=== PATIENT | male | born 1980 | race Caucasian/White ===

== ENCOUNTER → 2016-05-26 | Outpatient (CLI) | payer OTHER ==
[~2016-05-26] MED LIST: ATV/1 PO; CETI10TA84 PO; OMEP-199 PO
== END | disposition home or self-care (01) ==
LOC: C.RDSM 16:36
PROVIDERS: ATTEND Physical Medicine & Rehabilitation Sports Medicine
DX: S69.81XD Other specified injuries of right wrist, hand and finger(s), subsequent encounter (principal); X58.XXXD Exposure to other specified factors, subsequent encounter

== ENCOUNTER → 2016-09-15 | Outpatient (CLI) | payer OTHER | END | disposition home or self-care (01) | LOC: C.RDSM 15:28 | PROVIDERS: ATTEND Physical Medicine & Rehabilitation Sports Medicine | DX: M25.531 Pain in right wrist (principal) ==

== ENCOUNTER 2016-10-10 13:37 | Emergency (ER) | payer OTHER ==
[~2016-10-10] VITALS: Ht 185.4 cm; Wt 94.3 kg
[~2016-10-10 13:37] MED LIST changes: -CETI10TA84 PO
[2016-10-10 13:46] VITALS: TEMP 36.6; Ht 185.4 cm; Wt 94.3 kg
[2016-10-10] MEDS ORDERED: SODIUM CHLORIDE 0.9% 1000ML 1,000 ML IV STA ×2 (14:02)
[2016-10-10] MEDS ORDERED: OPTIRAY 320 IV PRN (14:15)
[2016-10-10 14:33] LABS: BASO % 0.3 %; BASO ABS # 0.02 K/uL (0-0.2); COMPLETE YES; EOS % 1.4 %; HEMATOCRIT 46.1 % (42-52); IG% 0.2 %; LYMPH % 25.5 %; MEAN CORPUSCULAR HEMOGLOBIN 31.1 pg (25-34); MEAN CORPUSCULAR HGB CONC 34.5 g/dl (32-36); MEAN PLATELET VOLUME 10.9 fL (7.4-10.4); MONO % 6.8 %; NEUT % 65.8 %; PLATELET COUNT 222 K/uL (130-400); RED BLOOD COUNT 5.12 M/uL (4.7-6.1); WHITE BLOOD COUNT 6.28 K/uL (4.8-10.8)
[2016-10-10 14:50] LABS: CALCIUM 9.2 mg/dl (8.5-10.1); CREATININE 1.1 mg/dl (0.60-1.40); POTASSIUM 3.8 mmol/L (3.5-5.1)
[2016-10-10] MEDS ORDERED: CETI10TA84 PO (15:06)
--- NOTE | 2016-10-10 15:11 | DIAGNOSTIC IMAGING REPORT ---
ABD/PELVIS WITHOUT FOR STONE HISTORY:36 yearsMaleRLQ PAIN COMPARISON: None available. TECHNIQUE: Multiple axial CT images of the abdomen and pelvis were obtained without the use of IV contrast. FINDINGS: Lung bases are clear. There is no gross pneumoperitoneum. Inferior cardiac chambers are unremarkable with slightly decreased attenuation of the cardiac blood pool which could reflect underlying anemia. Evaluation of the solid abdominal organs is limited without IV contrast. The liver, spleen, gallbladder, pancreas and adrenal glands are within normal limits. The kidneys are unremarkable without calculus identified. No obstructive uropathy. Bladder is within normal limits. The abdominal aorta is normal in course and caliber. No bulky adenopathy is identified. There is no bowel obstruction. The appendix is air-filled and nondilated within the abdominal right lower quadrant. No significant inflammatory changes are seen surrounding the appendix. There are however moderate inflammatory changes surrounding the cecum anterior to the appendix. (For example likely seen on image 115 of the axial series). Soft tissues are unremarkable. Bones are intact. IMPRESSION: 1. Moderate inflammatory changes about the cecum are present with normal appearance of the adjacent appendix. Differential considerations may include infectious colitis or inflammatory bowel disease. Because of the close proximity of the appendix, if symptoms persist a follow-up exam may be considered. 2. No renal calculi. The above report was generated using voice recognition software. It may contain grammatical, syntax or spelling errors. Electronically signed by: James Bazzi 10/10/2016 3:10 PM Dictated Date/Time: 10/10/2016 3:01 PM
--- NOTE | 2016-10-10 17:08 | EMERGENCY ROOM VISIT NOTE ---
History First contact with patient: 13:51 Chief Complaint: ABDOMINAL PAIN Stated Complaint: LOWER RIGHT ABDOMINAL PAIN Nursing Triage Summary: right lower quadrant since 430 this am. pain has been getting worse. no nausea or vomiting History of Present Illness Patient is a generally healthy 36-year-old white male who presents emergency department for evaluation of right lower quadrant abdominal pain that started this morning. Patient states that he awoke from sleep around 04:30 with a dull , achy pain in the right lower quadrant. He states the pain did not radiate. He got up and urinated at that time without difficulty. He went back to bed and woke up 2 hours later, again with the same pain. The pain has progressively worsened throughout the day. He presently rates it a 6/10. It is located in the right lower quadrant. He denies any radiation of the pain to his back or flank or to the umbilical or suprapubic region. There is been no associated nausea or vomiting. Last bowel movement this morning was normal, without blood or melena. He had a normal breakfast at 07:30, otherwise hasn't had nothing else to eat and has been drinking water since. He feels like he is urinating more frequently, but attributes this to drinking more water. He states his urine has been clear. He does note some increased pressure with voiding. He has not had any fevers. He was seen by his primary care provider and directed to the emergency department for evaluation of a possible appendicitis. He does have a family history of kidney stones. He has a history of anxiety and GERD, but is not presently taking any medications for this. Review of Systems Review of systems as per HPI. All other systems reviewed were negative. 10 systems reviewed. Past Medical/Surgical History Medical Problems: (1) Anxiety Disorder, Unspecified (2) Gastro-Esophageal Reflux Disease Without Esophagitis Surgical Problems: (1) S/P wrist surgery Electronic medical records are reviewed and summarized as above/below. See Problem List. Social History Smoking Status: Never Smoker Alcohol Use: occasionally Marital Status: single Housing Status: lives with roommate Occupation Status: employed Current/Historical Medications Scheduled Cetirizine (Zyrtec), 10 MG PO UD Lorazepam (Ativan), 1 MG PO QAM Omeprazole Magnesium (Omeprazole Magnesium), 1 CAP PO QAM Allergies Coded Allergies: POLLEN (Verified Allergy, Unknown, SEASONAL ALLERGIES, 10/10/16) Sulfa Antibiotics (Verified Allergy, Unknown, RASH, 10/10/16) Physical Exam Vital Signs Date Time Temp Pulse Resp B/P (MAP) Pulse Ox O2 Delivery O2 Flow Rate FiO2 10/10/16 17:31 67 20 123/83 98 Room Air 10/10/16 16:05 72 20 125/75 97 Room Air 10/10/16 15:00 72 20 120/68 98 Room Air 10/10/16 13:46 36.6 66 18 124/82 97 Room Air Physical Exam CONSTITUTIONAL: Patient is a pleasant, well-appearing 36-year-old white male who is awake and alert and in no acute distress. EYES: Pupils equal, round, reactive to light and accommodation. EOMs intact without nystagmus. Sclera are anicteric. ENT: Tympanic membranes intact, with normal landmarks. External canals are clear. Oral and nasopharynx are clear. Mucous membranes are moist, no lesions , tongue and gums appear normal. CARDIOVASCULAR: Regular rate and rhythm, with normal S1 and S2, no murmur or gallop or rub is heard. No carotid bruits auscultated. No JVD. Peripheral pulses easy to palpable. RESPIRATORY: Breath sounds equal and clear to auscultation without wheezes, rales, or rhonchi heard. Full and equal chest expansion without accessory muscle use or retractions. GI: Bowel sounds are present. Abdomen is soft, nondistended, tender to palpation in the right lower quadrant with voluntary guarding. Positive rebound and referred rebound tenderness, positive Rovsing sign. MUSCULOSKELETAL: Full range of motion of extremities x 4 with good strength. No cyanosis, edema, joint tenderness or swelling. No deformity. INTEGUMENTARY: No lesions or rash, normal skin turgor. NEUROLOGICAL: Alert, oriented, and cooperative. Cranial nerves, sensation and strength grossly intact. Pupils round, equal, and react to light, EOMs are full. LYMPH: No lymphadenopathy. Medical Decision & Procedures ER Provider Diagnostic Interpretation: ABD/PELVIS WITHOUT FOR STONE HISTORY:36 yearsMaleRLQ PAIN COMPARISON: None available. TECHNIQUE: Multiple axial CT images of the abdomen and pelvis were obtained without the use of IV contrast. FINDINGS: Lung bases are clear. There is no gross pneumoperitoneum. Inferior cardiac chambers are unremarkable with slightly decreased attenuation of the cardiac blood pool which could reflect underlying anemia. Evaluation of the solid abdominal organs is limited without IV contrast. The liver, spleen, gallbladder, pancreas and adrenal glands are within normal limits. The kidneys are unremarkable without calculus identified. No obstructive uropathy. Bladder is within normal limits. The abdominal aorta is normal in course and caliber. No bulky adenopathy is identified. There is no bowel obstruction. The appendix is air-filled and nondilated within the abdominal right lower quadrant. No significant inflammatory changes are seen surrounding the appendix. There are however moderate inflammatory changes surrounding the cecum anterior to the appendix. (For example likely seen on image 115 of the axial series). Soft tissues are unremarkable. Bones are intact. IMPRESSION: 1. Moderate inflammatory changes about the cecum are present with normal appearance of the adjacent appendix. Differential considerations may include infectious colitis or inflammatory bowel disease. Because of the close proximity of the appendix, if symptoms persist a follow-up exam may be considered. 2. No renal calculi. The above report was generated using voice recognition software. It may contain grammatical, syntax or spelling errors. Laboratory Results 10/10/16 14:15 Red Blood Count 5.12, Mean Corpuscular Volume 90.0, Mean Corpuscular Hemoglobin 31.1, Mean Corpuscular Hemoglobin Concent 34.5, Mean Platelet Volume 10.9, Neutrophils (%) (Auto) 65.8, Lymphocytes (%) (Auto) 25.5, Monocytes (%) (Auto) 6.8, Eosinophils (%) (Auto) 1.4, Basophils (%) (Auto) 0.3, Neutrophils # (Auto) 4.13, Lymphocytes # (Auto) 1.60, Monocytes # (Auto) 0.43, Eosinophils # (Auto) 0.09, Basophils # (Auto) 0.02 10/10/16 14:15 Test 10/10/16 14:15 10/10/16 15:15 White Blood Count 6.28 K/uL (4.8-10.8) Red Blood Count 5.12 M/uL (4.7-6.1) Hemoglobin 15.9 g/dL (14.0-18.0) Hematocrit 46.1 % (42-52) Mean Corpuscular Volume 90.0 fL (80-100) Mean Corpuscular Hemoglobin 31.1 pg (25-34) Mean Corpuscular Hemoglobin Concent 34.5 g/dl (32-36) Platelet Count 222 K/uL (130-400) Mean Platelet Volume 10.9 fL (7.4-10.4) Neutrophils (%) (Auto) 65.8 % Lymphocytes (%) (Auto) 25.5 % Monocytes (%) (Auto) 6.8 % Eosinophils (%) (Auto) 1.4 % Basophils (%) (Auto) 0.3 % Neutrophils # (Auto) 4.13 K/uL (1.4-6.5) Lymphocytes # (Auto) 1.60 K/uL (1.2-3.4) Monocytes # (Auto) 0.43 K/uL (0.11-0.59) Eosinophils # (Auto) 0.09 K/uL (0-0.5) Basophils # (Auto) 0.02 K/uL (0-0.2) RDW Standard Deviation 41.2 fL (36.4-46.3) RDW Coefficient of Variation 12.4 % (11.5-14.5) Immature Granulocyte % (Auto) 0.2 % Immature Granulocyte # (Auto) 0.01 K/uL (0.00-0.02) Anion Gap 7.0 mmol/L (3-11) Est Creatinine Clear Calc Drug Dose 106.9 ml/min Estimated GFR () 101.0 Estimated GFR (Non- 87.1 BUN/Creatinine Ratio 13.0 (10-20) Calcium Level 9.2 mg/dl (8.5-10.1) Urine Color YELLOW Urine Appearance CLEAR (CLEAR) Urine pH 6.0 (4.5-7.5) Urine Specific [place] 1.021 (1.000-1.030) Urine Protein NEG (NEG) Urine Glucose (UA) NEG (NEG) Urine Ketones TRACE (NEG) Urine Occult Blood TRACE (NEG) Urine Nitrite NEG (NEG) Urine Bilirubin NEG (NEG) Urine Urobilinogen NEG (NEG) Urine Leukocyte Esterase NEG (NEG) Urine WBC (Auto) 0 /hpf (0-5) Urine RBC (Auto) 0-4 /hpf (0-4) Urine Hyaline Casts (Auto) 1-5 /lpf (0-5) Urine Epithelial Cells (Auto) 5-10 /lpf (0-5) Urine Bacteria (Auto) NEG (NEG) Medications Administered Medications (Trade) Dose Ordered Sig/Ivett Route Start Time Stop Time Status Last Admin Dose Admin Sodium Chloride 1,000 ml @ 999 mls/hr Q1H1M STAT IV 10/10/16 14:02 10/10/16 15:02 DC 10/10/16 14:02 999 MLS/HR Sodium Chloride 1,000 ml @ 250 mls/hr Q4H STAT IV 10/10/16 14:02 10/10/16 18:01 DC 10/10/16 14:02 250 MLS/HR ED Course The patient was seen and evaluated as above. His old records were reviewed. IV lock was initiated and he was hydrated with normal saline solution. He declined any medication for pain. Laboratory studies were collected. Urine sample was collected, dipped and noted moderate ketones and a large amount of blood. Given this, CT scan of the abdomen and pelvis without contrast was ordered. CBC and BMP were drawn. Laboratory studies did not demonstrate any leukocytosis, left shift or bandemia. H&H is normal. Electrolytes and renal functions are within normal limits. Urine microscopy noted trace ketones and trace occult blood, otherwise no other indicators for infection. No RBCs. CT scan of the abdomen and pelvis demonstrated moderate inflammatory changes about the cecum, with normal adjacent appendix. Differentials entertain included infectious colitis or inflammatory bowel disease. There is no evidence for kidney stone. Patient was reviewed with attending physician. CT scan findings were discussed with Dr. Arreaga, who did not feel that this was a surgical case. I also discussed the patient with Dr. Cash of gastroenterology who felt that given the acute nature of the presentation and was likely infectious, and recommended supportive care. He did not feel that antibiotics are indicated. Supportive care measures were discussed with the patient. He declined narcotic analgesia. He was educated on the worrisome signs or symptoms for which she should return to the emergency department. Differential diagnoses entertained included appendicitis, UTI, pyelonephritis, renal colic, diverticulitis, bowel obstruction, perforation, abscess, infectious versus inflammatory colitis, food borne illness, among others. The patient was discharged home in good condition. He rated his pain a 4/10 at discharge. Medical Decision See Emergency Department course. Impression Primary Impression: Acute cecitis Departure Information Referrals Williams Rodriguez M.D. (PCP) Patient Instructions My [facility] Additional Instructions Ibuprofen(Motrin, Advil) may be used for fever or pain. Use 600mg every six hours as needed. Take with food. Avoid using more than 2400mg in a 24 hour period. Do not use 2400mg per day for more than three consecutive days without physician direction. Prolonged inappropriate use can lead to stomach upset or ulcers. This is available over the counter and typically comes in 200mg tablets. (AND/OR) Acetaminophen(Tylenol) may be used for fever or pain. Use 1000mg every eight hours as needed. Avoid using more than 3000mg in a 24 hour period. This is available over the counter. Rest and drink plenty of fluids as tolerated. Slow sips of water or sports drinks are recommended instead of large amounts all at once. Continue current medications. Once your stomach is settled start with a clear liquid diet (jello, soup broth, etc.) and then advance as tolerated. You should avoid full, heavy meals for about 24 hrs from the time your symptoms resolved. Return to the ER immediately for worsening or persistent abdominal pain, vomiting, fevers, chest pains, difficulty breathing, black or bloody stools, worsening of your condition, or as needed. Follow up with your primary provider on Thursday for a recheck of your current condition.
[2016-10-10 17:13] LABS: URINE APPEARANCE CLEAR (CLEAR); URINE BILIRUBIN NEG (NEG); URINE COLOR YELLOW; URINE NITRITE NEG (NEG); URINE SPECIFIC GRAVITY 1.021 (1.000-1.030); UROBILINOGEN NEG (NEG)
[2016-10-10 17:18] LABS: MANUAL MICROSCOPIC REQUIRED? NO; REVIEW REQ? NO
[2016-10-10 17:31] VITALS: BP 123/83; PULSE 67; O2SAT 98
== END 2016-10-10 17:34 | disposition home or self-care (01) ==
LOC: C.EDB 13:38 → C.EDC 17:34
DX: K52.9 Noninfective gastroenteritis and colitis, unspecified (principal); Z84.1 Family history of disorders of kidney and ureter